=== PATIENT | male | born 1945 | race Caucasian/White ===

== ENCOUNTER 2025-06-23 12:45 | Inpatient (IN) ==
[2025-06-23] MEDS: 0.9 % SODIUM CHLORIDE 1,000 ML IV ONE ×2 (13:08→14:06)
[2025-06-23 13:24] LABS: Basophils # (Auto) 0 K/mcL (0.00-0.30); Basophils % (Auto) 0 % (0.0-2.0); Eosinophils # (Auto) 0 K/mcL (0.00-0.70); Eosinophils % (Auto) 0 % (0.0-7.0); Hematocrit 42.7 % (40.1-51.0); Hemoglobin 13.5 g/dL (13.7-17.5); Lymphocytes # (Auto) 0.78 K/mcL (1.50-4.80); Lymphocytes % (Auto) 5.6 % (15.5-49.0); Mean Corpuscular HGB Conc 31.6 g/dL (31.0-36.0); Monocytes # (Auto) 1.23 K/mcL (0.10-0.90); Monocytes % (Auto) 8.8 % (1.0-12.0); Neutrophils % (Auto) 85.2 % (38.0-78.0); Platelet Count 206 K/mcL (140-440); RBC 5.18 M/mcL (4.63-6.08); WBC 14.0 K/mcL (4.5-11.0)
[2025-06-23] MEDS: CEFEPIME 1 GM VIAL IV ONE (13:40)
[2025-06-23 13:42] LABS: ALT/SGPT 13 U/L (<40); AST/SGOT 20 U/L (<40); Albumin 3.7 gm/dL (3.2-5.2); Albumin/Globulin Ratio 1.1 (1.0-2.3); Alkaline Phosphatase 81 U/L (39-117); Anion Gap 18.0 (8.0-16.0); Bilirubin,Total 0.6 mg/dL (0.1-1.0); Blood Urea Nitrogen 40 mg/dL (8-23); Calcium 9.5 mg/dL (8.6-10.4); Carbon Dioxide 20 mmol/L (22-30); Chloride 100 mmol/L (96-108); Globulin 3.5 gm/dL (2.2-3.7); Glucose 343 mg/dL (70-105); Potassium 3.7 mmol/L (3.3-5.1); Sodium 138 mmol/L (133-145)
[2025-06-23 13:48] LABS: INR 1.0 (0.9-1.1); Prothrombin Time 14.3 sec (11.9-14.5)
[2025-06-23 15:34] LABS: Anion Gap 14.0 (8.0-16.0); Blood Urea Nitrogen 37 mg/dL (8-23); Calcium 8.6 mg/dL (8.6-10.4); Carbon Dioxide 22 mmol/L (22-30); Chloride 105 mmol/L (96-108); Glucose 289 mg/dL (70-105); Potassium 3.8 mmol/L (3.3-5.1); Sodium 141 mmol/L (133-145)
[2025-06-23] MEDS: LIDOCAINE 2% URO-JET 10 ML JEL.PF.APP UR ONE (16:43)
[2025-06-23 17:28] LABS: Bacteria,Urine Many /hpf (0); Bilirubin,Urine Negative (Negative); Color,Urine Red; Glucose,Urine (UA) 500 mg/dL (Negative); Ketones,Urine 40 mg/dL (Negative); Leukocyte Esterase,Urine Negative /uL (Negative); PH,Urine 5.5 (5.0-9.0); Protein,Urine >=300 mg/dL (Negative); Specific Gravity,Urine 1.025 (1.000-1.035); Urobilinogen,Urine Normal
[2025-06-23] MEDS: DILTIAZEM 25 MG/5 ML VIAL IV ONE (17:59)
[2025-06-23 19:10] LABS: Phosphorous 2.1 mg/dL (2.5-4.5)
[2025-06-23] MEDS ORDERED: DEXTROSE 31 GM ORAL.SUSP PO PRN (20:15)
[2025-06-23] MEDS ORDERED: DEXTROSE 50% 50 ML VIAL IV PRN (20:15)
[2025-06-23] MEDS ORDERED: POLYETHYLENE GLYCOL 3350 17 GM PACKET PO PRN (20:29)
[2025-06-23] MEDS ORDERED: SENNOSIDES 1 TABLET PO PRN (20:29)
[2025-06-23] MEDS ORDERED: IPRATROPIUM/ALBUTEROL 3 ML AMPUL.NEB NEB PRN (20:29)
[2025-06-23] MEDS ORDERED: ONDANSETRON 4 MG/2 ML VIAL IV PRN (20:29)
[2025-06-23] MEDS ORDERED: ACETAMINOPHEN 325 MG TABLET PO PRN (20:29)
[2025-06-23] MEDS: POTASSIUM PHOSPHATE 20 MEQ in DEXTROSE 5% IN WATER 250 ML IV SCH (20:43)
[2025-06-23] MEDS: LACTATED RINGERS 1,000 ML IV SCH (20:44)
[2025-06-23] MEDS: VANCOMYCIN 1,500 MG in 0.9 % SODIUM CHLORIDE 500 ML IV SCH (20:52)
[2025-06-23] MEDS: VANCOMYCIN PER PHARMACY IV ONE (21:04)
[2025-06-23] MEDS: SIMVASTATIN 10 MG TABLET PO SCH (21:47)
[2025-06-23] MEDS: TAMSULOSIN 0.4 MG CAPSULE PO SCH (21:47)
[2025-06-23] MEDS: APIXABAN 5 MG TABLET PO SCH (21:47)
[2025-06-23] MEDS: POTASSIUM PHOSPHATE 66 MEQ/15 ML VIAL IV ONE (21:47)
[2025-06-23] MEDS: CEFEPIME 2 GM VIAL IV SCH (21:47)
[2025-06-23] MEDS: MELATONIN 3 MG TABLET PO SCH (21:47)
[2025-06-23] MEDS: 0.9 % SODIUM CHLORIDE 10 ML SYRINGE IV SCH (21:51)
[2025-06-23] MEDS: INSULIN LISPRO 1 UNIT/0.01 ML UNIT SQ SCH (21:51)
[2025-06-24 05:59] LABS: Basophils # (Auto) 0.01 K/mcL (0.00-0.30); Basophils % (Auto) 0.1 % (0.0-2.0); Eosinophils # (Auto) 0 K/mcL (0.00-0.70); Eosinophils % (Auto) 0 % (0.0-7.0); Hematocrit 36.6 % (40.1-51.0); Hemoglobin 11.4 g/dL (13.7-17.5); Lymphocytes # (Auto) 0.82 K/mcL (1.50-4.80); Lymphocytes % (Auto) 7.6 % (15.5-49.0); Mean Corpuscular HGB Conc 31.1 g/dL (31.0-36.0); Monocytes # (Auto) 1.27 K/mcL (0.10-0.90); Monocytes % (Auto) 11.8 % (1.0-12.0); Neutrophils % (Auto) 80.1 % (38.0-78.0); Platelet Count 177 K/mcL (140-440); RBC 4.36 M/mcL (4.63-6.08); WBC 10.7 K/mcL (4.5-11.0)
[2025-06-24] MEDS ORDERED: VANCOMYCIN PER PHARMACY IV SCH (06:45)
[2025-06-24 06:52] LABS: Phosphorous 2.1 mg/dL (2.5-4.5)
[2025-06-24 07:17] LABS: Anion Gap 16.0 (8.0-16.0); Blood Urea Nitrogen 30 mg/dL (8-23); Calcium 8.7 mg/dL (8.6-10.4); Carbon Dioxide 19 mmol/L (22-30); Chloride 106 mmol/L (96-108); Glucose 237 mg/dL (70-105); Potassium 3.8 mmol/L (3.3-5.1); Sodium 141 mmol/L (133-145)
[2025-06-24] MEDS: INSULIN GLARGINE, HUMAN 1 UNIT/0.01 ML SQ ONE (08:02)
[2025-06-24] MEDS: LEVOTHYROXINE 75 MCG TABLET PO SCH (08:55)
[2025-06-24] MEDS: POTASSIUM PHOSPHATE 40 MEQ in DEXTROSE 5% IN WATER 500 ML IV ONE (08:58)
[2025-06-25 06:27] LABS: Basophils # (Auto) 0.01 K/mcL (0.00-0.30); Basophils % (Auto) 0.1 % (0.0-2.0); Eosinophils # (Auto) 0.03 K/mcL (0.00-0.70); Eosinophils % (Auto) 0.3 % (0.0-7.0); Hematocrit 34.6 % (40.1-51.0); Hemoglobin 10.8 g/dL (13.7-17.5); Lymphocytes # (Auto) 1.09 K/mcL (1.50-4.80); Lymphocytes % (Auto) 11.6 % (15.5-49.0); Mean Corpuscular HGB Conc 31.2 g/dL (31.0-36.0); Monocytes # (Auto) 1.12 K/mcL (0.10-0.90); Monocytes % (Auto) 11.9 % (1.0-12.0); Neutrophils % (Auto) 75.2 % (38.0-78.0); Platelet Count 179 K/mcL (140-440); RBC 4.13 M/mcL (4.63-6.08); WBC 9.4 K/mcL (4.5-11.0)
[2025-06-25 06:48] LABS: Phosphorous 2.6 mg/dL (2.5-4.5)
[2025-06-25 06:52] LABS: Anion Gap 13.0 (8.0-16.0); Blood Urea Nitrogen 22 mg/dL (8-23); Calcium 8.4 mg/dL (8.6-10.4); Carbon Dioxide 21 mmol/L (22-30); Chloride 102 mmol/L (96-108); Glucose 148 mg/dL (70-105); Potassium 3.8 mmol/L (3.3-5.1); Sodium 136 mmol/L (133-145)
[2025-06-25] MEDS: METOPROLOL SUCCINATE 25 MG TAB.XL.24H PO ONE (14:23)
[2025-06-26 05:57] LABS: Basophils # (Auto) 0.01 K/mcL (0.00-0.30); Basophils % (Auto) 0.1 % (0.0-2.0); Eosinophils # (Auto) 0.05 K/mcL (0.00-0.70); Eosinophils % (Auto) 0.5 % (0.0-7.0); Hematocrit 34.6 % (40.1-51.0); Hemoglobin 10.9 g/dL (13.7-17.5); Lymphocytes # (Auto) 1.01 K/mcL (1.50-4.80); Lymphocytes % (Auto) 10.3 % (15.5-49.0); Mean Corpuscular HGB Conc 31.5 g/dL (31.0-36.0); Monocytes # (Auto) 0.82 K/mcL (0.10-0.90); Monocytes % (Auto) 8.4 % (1.0-12.0); Neutrophils % (Auto) 79.0 % (38.0-78.0); Platelet Count 185 K/mcL (140-440); RBC 4.25 M/mcL (4.63-6.08); WBC 9.8 K/mcL (4.5-11.0)
[2025-06-26 06:03] LABS: Phosphorous 2.0 mg/dL (2.5-4.5)
[2025-06-26 06:06] LABS: Anion Gap 12.0 (8.0-16.0); Blood Urea Nitrogen 17 mg/dL (8-23); Calcium 8.3 mg/dL (8.6-10.4); Carbon Dioxide 23 mmol/L (22-30); Chloride 99 mmol/L (96-108); Glucose 176 mg/dL (70-105); Potassium 3.3 mmol/L (3.3-5.1); Sodium 134 mmol/L (133-145)
[2025-06-26] MEDS: METOPROLOL SUCCINATE 25 MG TAB.XL.24H PO SCH (08:08)
[2025-06-26] MEDS: LEVOFLOXACIN 750 MG/150 ML BAG IV SCH (09:58)
[2025-06-26] MEDS: POTASSIUM PHOSPHATE 40 MEQ in DEXTROSE 5% IN WATER 500 ML IV ONE (11:15)
[2025-06-27 00:12] VITALS: O2SAT 96
[2025-06-27 06:15] LABS: ALT/SGPT 23 U/L (<40); AST/SGOT 21 U/L (<40); Albumin 3.0 gm/dL (3.2-5.2); Albumin/Globulin Ratio 1.2 (1.0-2.3); Alkaline Phosphatase 61 U/L (39-117); Anion Gap 13.0 (8.0-16.0); Bilirubin,Direct 0.2 mg/dL (<0.3); Bilirubin,Total 0.5 mg/dL (0.1-1.0); Blood Urea Nitrogen 12 mg/dL (8-23); Calcium 8.5 mg/dL (8.6-10.4); Carbon Dioxide 24 mmol/L (22-30); Chloride 100 mmol/L (96-108); Globulin 2.6 gm/dL (2.2-3.7); Glucose 160 mg/dL (70-105); Phosphorous 2.7 mg/dL (2.5-4.5); Potassium 3.4 mmol/L (3.3-5.1); Sodium 137 mmol/L (133-145); Triglycerides 124 mg/dL (<150); Uric Acid 3.3 mg/dL (2.5-8.0)
[2025-06-27 06:58] VITALS: TEMP 98.5
[2025-06-28] MEDS ORDERED: LEVOFLOXACIN 750 MG TABLET PO SCH (09:00)
== END 2025-06-27 13:15 | disposition home health service (06) | DRG 872 ==
LOC: ED 12:45 → ICU 20:20 → MEDSUR 06-26 17:30
PROVIDERS: ADMIT Student in an Organized Health Care Education/Training Program; ATTEND Internal Medicine

== ENCOUNTER 2025-08-17 12:02 | Inpatient (IN) ==
[2025-08-17] MEDS ORDERED: IOPAMIDOL 100 ML BOTTLE IV ONE (12:03)
[2025-08-17] MEDS: 0.9 % SODIUM CHLORIDE 1,000 ML IV ONE ×2 (12:20→17:29)
[2025-08-17] MEDS ORDERED: VANCOMYCIN PER PHARMACY IV SCH ×2 (13:45→17:00)
[2025-08-17 13:46] LABS: Thyroid Stimulating Hormone 1.06 uIU/mL (0.27-5.01)
[2025-08-17 13:49] LABS: ALT/SGPT 9 U/L (<40); AST/SGOT 24 U/L (<40); Albumin 4.0 gm/dL (3.2-5.2); Albumin/Globulin Ratio 1.1 (1.0-2.3); Alkaline Phosphatase 116 U/L (39-117); Anion Gap 18.0 (8.0-16.0); Bilirubin,Total 1.0 mg/dL (0.1-1.0); Blood Urea Nitrogen 31 mg/dL (8-23); Calcium 9.1 mg/dL (8.6-10.4); Carbon Dioxide 20 mmol/L (22-30); Chloride 94 mmol/L (96-108); Globulin 3.5 gm/dL (2.2-3.7); Glucose 626 mg/dL (70-105); Potassium 4.9 mmol/L (3.3-5.1); Sodium 132 mmol/L (133-145)
[2025-08-17 13:50] LABS: Basophils # (Auto) 0.06 K/mcL (0.00-0.30); Basophils % (Auto) 0.2 % (0.0-2.0); Eosinophils # (Auto) 0 K/mcL (0.00-0.70); Eosinophils % (Auto) 0 % (0.0-7.0); Hematocrit 43.2 % (40.1-51.0); Hemoglobin 13.7 g/dL (13.7-17.5); Lymphocytes # (Auto) 0.84 K/mcL (1.50-4.80); Lymphocytes % (Auto) 2.5 % (15.5-49.0); Mean Corpuscular HGB Conc 31.7 g/dL (31.0-36.0); Monocytes # (Auto) 1.65 K/mcL (0.10-0.90); Monocytes % (Auto) 4.9 % (1.0-12.0); Neutrophils % (Auto) 91.5 % (38.0-78.0); Platelet Count 324 K/mcL (140-440); RBC 5.24 M/mcL (4.63-6.08); WBC 33.6 K/mcL (4.5-11.0)
[2025-08-17] MEDS: INSULIN REGULAR, HUMAN 1 UNIT/0.01 ML UNIT IV ONE (13:51)
[2025-08-17] MEDS: PIPERACILLIN SODIUM/TAZOBACTAM 4.5 GM in DEXTROSE 5% IN WATER 50 ML IV ONE (14:01)
[2025-08-17 14:12] LABS: VBG HCO3 18.0 mmol/L (24.0-28.0); VBG PCO2 38.2 mmHg (41.0-51.0); VBG PH 7.29 U (7.32-7.42); VBG PO2 28.1 mmHg (25.0-40.0)
[2025-08-17] MEDS: VANCOMYCIN 1,250 MG in 0.9 % SODIUM CHLORIDE 500 ML IV SCH (14:34)
[2025-08-17] MEDS: ONDANSETRON 4 MG/2 ML VIAL IV ONE (15:03)
[2025-08-17 15:42] LABS: Bacteria,Urine Many /hpf (0); Bilirubin,Urine NEGATIVE (Negative); Color,Urine LT. YELLOW; Glucose,Urine (UA) >=1000 mg/dL (Negative); Ketones,Urine TRACE mg/dL (Negative); Leukocyte Esterase,Urine SMALL /uL (Negative); PH,Urine 6.0 (5.0-9.0); Protein,Urine 30 mg/dL (Negative); Specific Gravity,Urine 1.015 (1.000-1.035); Urobilinogen,Urine 0.2 mg/dL
[2025-08-17 16:32] LABS: Anion Gap 15.0 (8.0-16.0); Blood Urea Nitrogen 31 mg/dL (8-23); Calcium 8.1 mg/dL (8.6-10.4); Carbon Dioxide 17 mmol/L (22-30); Chloride 103 mmol/L (96-108); Glucose 497 mg/dL (70-105); Potassium 4.5 mmol/L (3.3-5.1); Sodium 135 mmol/L (133-145)
[2025-08-17 16:46] LABS: Beta Hydroxybutyrate 0.40 mmol/L (<0.27); C-Reactive Protein 22.50 mg/dL (0.03-0.80)
[2025-08-17] MEDS ORDERED: ACETAMINOPHEN 325 MG TABLET PO PRN (16:53)
[2025-08-17] MEDS ORDERED: ONDANSETRON 4 MG/2 ML VIAL IV PRN (16:53)
[2025-08-17] MEDS: 0.45 % SODIUM CHLORIDE 1,000 ML IV SCH ×2 (17:28→18:25)
[2025-08-17 17:35] LABS: Estimated Average Glucose(eAG) 266.0 mg/dL; Hemoglobin A1C 10.9 % Hgb (4.0-6.0)
[2025-08-17 18:11] LABS: Anion Gap 15.0 (8.0-16.0); Blood Urea Nitrogen 30 mg/dL (8-23); Calcium 8.5 mg/dL (8.6-10.4); Carbon Dioxide 18 mmol/L (22-30); Chloride 103 mmol/L (96-108); Glucose 460 mg/dL (70-105); Potassium 4.5 mmol/L (3.3-5.1); Sodium 136 mmol/L (133-145)
[2025-08-17] MEDS: INSULIN REGULAR, HUMAN 50 UNIT in 0.9 % SODIUM CHLORIDE 99.5 ML IV SCH (18:29)
[2025-08-17] MEDS: 0.9 % SODIUM CHLORIDE 250 ML IV SCH (18:30)
[2025-08-17] MEDS ORDERED: POTASSIUM CHLORIDE 20 MEQ in 0.45 % SODIUM CHLORIDE 1,000 ML IV SCH (18:45)
[2025-08-17] MEDS: ACETAMINOPHEN 1,000 MG/100 ML BAG IV PRN (18:48)
[2025-08-17] MEDS: ACETAMINOPHEN 1,000 MG/100 ML BAG IV ONE (18:55)
[2025-08-17] MEDS: DEXTROSE 5%-1/2NS W/20MEQ KCL 1,000 ML IV SCH (18:56)
[2025-08-17] MEDS: POTASSIUM CHLORIDE 20 MEQ in 0.45 % SODIUM CHLORIDE 1,000 ML IV SCH (19:00)
[2025-08-17] MEDS: POTASSIUM CHLORIDE 20 MEQ/10 ML VIAL IV ONE ×2 (19:05→22:59)
[2025-08-17] MEDS: CEFEPIME 2 GM VIAL IV SCH (19:37)
[2025-08-17] MEDS: LACTATED RINGERS 1,000 ML IV ONE (20:05)
[2025-08-17] MEDS: 0.9 % SODIUM CHLORIDE 10 ML SYRINGE IV SCH (20:38)
[2025-08-17] MEDS ORDERED: HEPARIN 5,000 UNIT/ML VIAL SQ SCH (21:00)
[2025-08-17] MEDS: APIXABAN 2.5 MG TABLET PO SCH (21:46)
[2025-08-17 22:15] LABS: Anion Gap 11.0 (8.0-16.0); Blood Urea Nitrogen 30 mg/dL (8-23); Calcium 8.3 mg/dL (8.6-10.4); Carbon Dioxide 20 mmol/L (22-30); Chloride 108 mmol/L (96-108); Glucose 247 mg/dL (70-105); Potassium 3.5 mmol/L (3.3-5.1); Sodium 139 mmol/L (133-145)
[2025-08-17] MEDS ORDERED: DEXTROSE 5%-1/2NS W/40MEQ KCL 1,000 ML IV SCH (22:45)
[2025-08-17] MEDS ORDERED: POTASSIUM CHLORIDE 40 MEQ in 0.45 % SODIUM CHLORIDE 1,000 ML IV SCH (22:45)
[2025-08-17] MEDS: POTASSIUM CHLORIDE 20 MEQ TABLET PO ONE ×2 (22:46→22:47)
[2025-08-17] MEDS: DEXTROSE 5%-1/2NS W/40MEQ KCL 1,000 ML IV SCH (22:59)
[2025-08-17] MEDS: INSULIN REGULAR, HUMAN 1 UNIT/0.01 ML UNIT ONE (23:50)
[2025-08-18] MEDS: ACETAMINOPHEN 1,000 MG/100 ML BAG IV PRN (02:26)
[2025-08-18 02:29] LABS: Anion Gap 8.0 (8.0-16.0); Blood Urea Nitrogen 29 mg/dL (8-23); Calcium 8.3 mg/dL (8.6-10.4); Carbon Dioxide 22 mmol/L (22-30); Chloride 109 mmol/L (96-108); Glucose 135 mg/dL (70-105); Potassium 4.4 mmol/L (3.3-5.1); Sodium 139 mmol/L (133-145)
[2025-08-18 05:33] LABS: ALT/SGPT 13 U/L (<40); AST/SGOT 30 U/L (<40); Albumin 3.1 gm/dL (3.2-5.2); Albumin/Globulin Ratio 1.0 (1.0-2.3); Alkaline Phosphatase 70 U/L (39-117); Anion Gap 9.0 (8.0-16.0); Bilirubin,Direct 0.3 mg/dL (<0.3); Bilirubin,Total 0.6 mg/dL (0.1-1.0); Blood Urea Nitrogen 28 mg/dL (8-23); Calcium 8.1 mg/dL (8.6-10.4); Carbon Dioxide 20 mmol/L (22-30); Chloride 109 mmol/L (96-108); Globulin 3.0 gm/dL (2.2-3.7); Glucose 142 mg/dL (70-105); Phosphorous 1.8 mg/dL (2.5-4.5); Potassium 5.1 mmol/L (3.3-5.1); Sodium 138 mmol/L (133-145); Triglycerides 70 mg/dL (<150); Uric Acid 4.5 mg/dL (2.5-8.0)
[2025-08-18] MEDS: POTASSIUM CHLORIDE 20 MEQ/10 ML VIAL IV ONE (05:51)
[2025-08-18 06:20] LABS: Basophils # (Auto) 0.01 K/mcL (0.00-0.30); Basophils % (Auto) 0 % (0.0-2.0); Eosinophils # (Auto) 0 K/mcL (0.00-0.70); Eosinophils % (Auto) 0 % (0.0-7.0); Hematocrit 36.0 % (40.1-51.0); Hemoglobin 11.3 g/dL (13.7-17.5); Lymphocytes # (Auto) 0.89 K/mcL (1.50-4.80); Lymphocytes % (Auto) 4.1 % (15.5-49.0); Mean Corpuscular HGB Conc 31.4 g/dL (31.0-36.0); Monocytes # (Auto) 0.92 K/mcL (0.10-0.90); Monocytes % (Auto) 4.3 % (1.0-12.0); Neutrophils % (Auto) 90.9 % (38.0-78.0); Platelet Count 198 K/mcL (140-440); RBC 4.37 M/mcL (4.63-6.08); WBC 21.5 K/mcL (4.5-11.0)
[2025-08-18] MEDS: PANTOPRAZOLE 40 MG TABLET PO SCH (07:20)
[2025-08-18] MEDS ORDERED: DEXTROSE 31 GM ORAL.SUSP PO PRN (08:23)
[2025-08-18] MEDS ORDERED: DEXTROSE 50% 50 ML VIAL IV PRN (08:23)
[2025-08-18] MEDS: LACTATED RINGERS 1,000 ML IV SCH (08:43)
[2025-08-18] MEDS: INSULIN GLARGINE, HUMAN 1 UNIT/0.01 ML SQ SCH (08:43)
[2025-08-18 10:37] LABS: Anion Gap 8.0 (8.0-16.0); Blood Urea Nitrogen 27 mg/dL (8-23); Calcium 7.9 mg/dL (8.6-10.4); Carbon Dioxide 20 mmol/L (22-30); Chloride 106 mmol/L (96-108); Glucose 270 mg/dL (70-105); Potassium 6.3 mmol/L (3.3-5.1); Sodium 134 mmol/L (133-145)
[2025-08-18] MEDS: INSULIN REGULAR, HUMAN 1 UNIT/0.01 ML UNIT IV ONE ×3 (10:50→19:06)
[2025-08-18] MEDS: INSULIN LISPRO 1 UNIT/0.01 ML UNIT SQ SCH (11:14)
[2025-08-18] MEDS: CALCIUM GLUCONATE 4.65 MEQ in DEXTROSE 5% IN WATER 50 ML IV ONE (11:46)
[2025-08-18] MEDS: SODIUM PHOSPHATE 15 MMOL in DEXTROSE 5% IN WATER 250 ML IV ONE (11:49)
[2025-08-18] MEDS: SODIUM ZIRCONIUM CYCLOSILICATE 10 GM PACKET PO ONE (12:13)
[2025-08-18 12:15] LABS: Potassium 6.1 mmol/L (3.3-5.1)
[2025-08-18] MEDS ORDERED: VANCOMYCIN 1,000 MG in 0.9 % SODIUM CHLORIDE 250 ML IV SCH (13:00)
[2025-08-18 14:26] LABS: Anion Gap 10.0 (8.0-16.0); Blood Urea Nitrogen 27 mg/dL (8-23); Calcium 8.4 mg/dL (8.6-10.4); Carbon Dioxide 20 mmol/L (22-30); Chloride 106 mmol/L (96-108); Glucose 238 mg/dL (70-105); Potassium 4.4 mmol/L (3.3-5.1); Sodium 136 mmol/L (133-145)
[2025-08-18] MEDS: INSULIN GLARGINE, HUMAN 1 UNIT/0.01 ML SQ ONE (15:29)
[2025-08-18] MEDS: INSULIN REGULAR, HUMAN 1 UNIT/0.01 ML UNIT ONE (19:56)
[2025-08-18] MEDS: SENNOSIDES 1 TABLET PO PRN (21:11)
[2025-08-18] MEDS: METOPROLOL TARTRATE 25 MG TABLET PO ONE (22:25)
[2025-08-18] MEDS: METOPROLOL TARTRATE 25 MG TABLET ONE (22:25)
[2025-08-19 07:00] LABS: ALT/SGPT 12 U/L (<40); AST/SGOT 21 U/L (<40); Albumin 2.6 gm/dL (3.2-5.2); Albumin/Globulin Ratio 0.9 (1.0-2.3); Alkaline Phosphatase 60 U/L (39-117); Anion Gap 9.0 (8.0-16.0); Bilirubin,Direct 0.3 mg/dL (<0.3); Bilirubin,Total 0.5 mg/dL (0.1-1.0); Blood Urea Nitrogen 24 mg/dL (8-23); Calcium 7.9 mg/dL (8.6-10.4); Carbon Dioxide 20 mmol/L (22-30); Chloride 106 mmol/L (96-108); Globulin 3.0 gm/dL (2.2-3.7); Glucose 151 mg/dL (70-105); Phosphorous 2.4 mg/dL (2.5-4.5); Potassium 4.2 mmol/L (3.3-5.1); Sodium 135 mmol/L (133-145); Triglycerides 125 mg/dL (<150); Uric Acid 4.0 mg/dL (2.5-8.0)
[2025-08-19 07:20] LABS: Basophils # (Auto) 0 K/mcL (0.00-0.30); Basophils % (Auto) 0 % (0.0-2.0); Eosinophils # (Auto) 0.03 K/mcL (0.00-0.70); Eosinophils % (Auto) 0.2 % (0.0-7.0); Hematocrit 32.3 % (40.1-51.0); Hemoglobin 10.2 g/dL (13.7-17.5); Lymphocytes # (Auto) 0.85 K/mcL (1.50-4.80); Lymphocytes % (Auto) 5.5 % (15.5-49.0); Mean Corpuscular HGB Conc 31.6 g/dL (31.0-36.0); Monocytes # (Auto) 0.82 K/mcL (0.10-0.90); Monocytes % (Auto) 5.3 % (1.0-12.0); Neutrophils % (Auto) 88.0 % (38.0-78.0); Platelet Count 138 K/mcL (140-440); RBC 3.94 M/mcL (4.63-6.08); WBC 15.4 K/mcL (4.5-11.0)
[2025-08-19] MEDS: INSULIN GLARGINE, HUMAN 1 UNIT/0.01 ML SQ SCH (08:45)
[2025-08-19] MEDS: METOPROLOL TARTRATE 25 MG TABLET PO SCH (08:47)
[2025-08-19] MEDS: SODIUM PHOSPHATE 15 MMOL in DEXTROSE 5% IN WATER 250 ML IV ONE (09:29)
[2025-08-19] MEDS: LEVOFLOXACIN 750 MG/150 ML BAG IV SCH (09:30)
[2025-08-19] MEDS: POLYETHYLENE GLYCOL 3350 17 GM PACKET PO PRN (12:02)
[2025-08-19] MEDS: POLYETHYLENE GLYCOL 3350 17 GM PACKET PO SCH (21:33)
[2025-08-20 06:19] LABS: ALT/SGPT 13 U/L (<40); AST/SGOT 16 U/L (<40); Albumin 2.7 gm/dL (3.2-5.2); Albumin/Globulin Ratio 0.9 (1.0-2.3); Alkaline Phosphatase 70 U/L (39-117); Anion Gap 10.0 (8.0-16.0); Bilirubin,Direct 0.3 mg/dL (<0.3); Bilirubin,Total 0.5 mg/dL (0.1-1.0); Blood Urea Nitrogen 25 mg/dL (8-23); Calcium 8.0 mg/dL (8.6-10.4); Carbon Dioxide 21 mmol/L (22-30); Chloride 102 mmol/L (96-108); Globulin 3.1 gm/dL (2.2-3.7); Glucose 135 mg/dL (70-105); Phosphorous 1.7 mg/dL (2.5-4.5); Potassium 4.0 mmol/L (3.3-5.1); Sodium 133 mmol/L (133-145); Triglycerides 172 mg/dL (<150); Uric Acid 4.1 mg/dL (2.5-8.0)
[2025-08-20 09:24] LABS: Basophils # (Auto) 0.02 K/mcL (0.00-0.30); Basophils % (Auto) 0.1 % (0.0-2.0); Eosinophils # (Auto) 0.01 K/mcL (0.00-0.70); Eosinophils % (Auto) 0.1 % (0.0-7.0); Hematocrit 33.5 % (40.1-51.0); Hemoglobin 10.6 g/dL (13.7-17.5); Lymphocytes # (Auto) 0.86 K/mcL (1.50-4.80); Lymphocytes % (Auto) 6.4 % (15.5-49.0); Mean Corpuscular HGB Conc 31.6 g/dL (31.0-36.0); Monocytes # (Auto) 0.93 K/mcL (0.10-0.90); Monocytes % (Auto) 7.0 % (1.0-12.0); Neutrophils % (Auto) 85.8 % (38.0-78.0); Platelet Count 132 K/mcL (140-440); RBC 4.11 M/mcL (4.63-6.08); WBC 13.4 K/mcL (4.5-11.0)
[2025-08-20] MEDS: METOPROLOL TARTRATE 25 MG TABLET PO SCH (10:22)
[2025-08-20] MEDS: NEUTRA PHOS 1 PACKET PO ONE (14:18)
[2025-08-20] MEDS: SODIUM PHOSPHATE 30 MMOL in DEXTROSE 5% IN WATER 500 ML IV ONE (14:20)
[2025-08-20] MEDS: SIMVASTATIN 10 MG TABLET PO SCH (20:22)
[2025-08-21 06:59] LABS: Basophils # (Auto) 0.01 K/mcL (0.00-0.30); Basophils % (Auto) 0.1 % (0.0-2.0); Eosinophils # (Auto) 0.05 K/mcL (0.00-0.70); Eosinophils % (Auto) 0.5 % (0.0-7.0); Hematocrit 35.4 % (40.1-51.0); Hemoglobin 11.4 g/dL (13.7-17.5); Lymphocytes # (Auto) 0.94 K/mcL (1.50-4.80); Lymphocytes % (Auto) 9.8 % (15.5-49.0); Mean Corpuscular HGB Conc 32.2 g/dL (31.0-36.0); Monocytes # (Auto) 0.93 K/mcL (0.10-0.90); Monocytes % (Auto) 9.7 % (1.0-12.0); Neutrophils % (Auto) 77.0 % (38.0-78.0); Platelet Count 138 K/mcL (140-440); RBC 4.45 M/mcL (4.63-6.08); WBC 9.6 K/mcL (4.5-11.0)
[2025-08-21] MEDS: LEVOTHYROXINE 75 MCG TABLET PO SCH (07:11)
[2025-08-21 10:08] LABS: ALT/SGPT 20 U/L (<40); AST/SGOT 44 U/L (<40); Albumin 2.6 gm/dL (3.2-5.2); Albumin/Globulin Ratio 0.8 (1.0-2.3); Alkaline Phosphatase 109 U/L (39-117); Anion Gap 13.0 (8.0-16.0); Bilirubin,Direct 0.2 mg/dL (<0.3); Bilirubin,Total 0.4 mg/dL (0.1-1.0); Blood Urea Nitrogen 21 mg/dL (8-23); Calcium 7.9 mg/dL (8.6-10.4); Carbon Dioxide 19 mmol/L (22-30); Chloride 101 mmol/L (96-108); Globulin 3.3 gm/dL (2.2-3.7); Glucose 125 mg/dL (70-105); Phosphorous 2.0 mg/dL (2.5-4.5); Potassium 3.9 mmol/L (3.3-5.1); Sodium 133 mmol/L (133-145); Triglycerides 166 mg/dL (<150); Uric Acid 4.0 mg/dL (2.5-8.0)
[2025-08-21] MEDS: METOPROLOL TARTRATE 5 MG/5 ML VIAL IV ONE (13:17)
[2025-08-21] MEDS: LACTATED RINGERS 1,000 ML IV SCH (13:30)
[2025-08-21] MEDS: POTASSIUM PHOSPHATE 40 MEQ in DEXTROSE 5% IN WATER 500 ML IV ONE (14:17)
[2025-08-21] MEDS: METOPROLOL TARTRATE 25 MG TABLET PO SCH (20:09)
[2025-08-21] MEDS: APIXABAN 5 MG TABLET PO SCH (20:09)
[2025-08-22 06:19] LABS: Basophils # (Auto) 0.01 K/mcL (0.00-0.30); Basophils % (Auto) 0.1 % (0.0-2.0); Eosinophils # (Auto) 0.06 K/mcL (0.00-0.70); Eosinophils % (Auto) 0.6 % (0.0-7.0); Hematocrit 35.1 % (40.1-51.0); Hemoglobin 11.3 g/dL (13.7-17.5); Lymphocytes # (Auto) 1.09 K/mcL (1.50-4.80); Lymphocytes % (Auto) 10.5 % (15.5-49.0); Mean Corpuscular HGB Conc 32.2 g/dL (31.0-36.0); Monocytes # (Auto) 1.01 K/mcL (0.10-0.90); Monocytes % (Auto) 9.7 % (1.0-12.0); Neutrophils % (Auto) 71.7 % (38.0-78.0); Platelet Count 164 K/mcL (140-440); RBC 4.42 M/mcL (4.63-6.08); WBC 10.4 K/mcL (4.5-11.0)
[2025-08-22 06:35] LABS: ALT/SGPT 23 U/L (<40); AST/SGOT 60 U/L (<40); Albumin 2.6 gm/dL (3.2-5.2); Albumin/Globulin Ratio 0.8 (1.0-2.3); Alkaline Phosphatase 124 U/L (39-117); Anion Gap 11.0 (8.0-16.0); Bilirubin,Direct 0.2 mg/dL (<0.3); Bilirubin,Total 0.4 mg/dL (0.1-1.0); Blood Urea Nitrogen 21 mg/dL (8-23); Calcium 7.8 mg/dL (8.6-10.4); Carbon Dioxide 23 mmol/L (22-30); Chloride 100 mmol/L (96-108); Globulin 3.1 gm/dL (2.2-3.7); Glucose 114 mg/dL (70-105); Phosphorous 2.2 mg/dL (2.5-4.5); Potassium 3.8 mmol/L (3.3-5.1); Sodium 134 mmol/L (133-145); Triglycerides 136 mg/dL (<150); Uric Acid 3.9 mg/dL (2.5-8.0)
[2025-08-22] MEDS: CEFUROXIME 500 MG TABLET PO SCH (08:13)
[2025-08-22] MEDS: METOPROLOL TARTRATE 25 MG TABLET PO ONE (09:40)
[2025-08-22] MEDS: NEUTRA PHOS 1 PACKET PO ONE (11:12)
[2025-08-22] MEDS: POTASSIUM PHOSPHATE 20 MEQ in DEXTROSE 5% IN WATER 250 ML IV ONE (11:38)
[2025-08-22 12:57] VITALS: TEMP 97.6
[2025-08-22 13:01] VITALS: O2SAT 94
[2025-08-22 20:16] LABS: Estimated Average Glucose(eAG) 263 mg/dL; Hemoglobin A1C 10.8 % Hgb (4.0-6.0)
[2025-08-22] MEDS ORDERED: METOPROLOL TARTRATE 25 MG TABLET PO SCH (21:00)
== END 2025-08-22 12:23 | DRG 872 ==
LOC: ED 12:02 → ICU 18:05
PROVIDERS: ADMIT Internal Medicine; ATTEND Student in an Organized Health Care Education/Training Program